=== PATIENT | male | born 1940 | race African-American/Black ===

== ENCOUNTER 2020-01-22 14:15 | Emergency (ER) | payer OTHER ==
[2020-01-22 14:37] LABS: Absolute Lymphocytes (CBC) 2.6 K/uL (0.7-4.9); Basophils % 0.7 % (0-1.3); Hematocrit 39.3 % (39.6-49.0); Lymphocytes % 21.9 % (15.3-44.8); MPV 9.4 fL (7.6-11.3); RBC Red Blood Cell Count 5.15 M/uL (4.33-5.43)
[2020-01-22] MEDS ORDERED: MORPHINE 4 MG/ML SYR ONE (14:43)
[2020-01-22] MEDS ORDERED: ONDANSETRON 4 MG/2 ML VIAL ONE (14:43)
[2020-01-22 15:05] LABS: Albumin 3.8 g/dL (3.4-5.0); Bilirubin Direct 0.2 mg/dL (0-0.2); Bilirubin Total 0.6 mg/dL (0.2-1.0); Potassium 3.6 mmol/L (3.5-5.1); Protein, Total 8.5 g/dL (6.4-8.2)
--- NOTE | 2020-01-22 15:48 | RAD REPORT ---
EXAM DESCRIPTION: CT - Abdomen Pelvis Wo Contrast - 01/22/2020 3:32 pm CLINICAL HISTORY: ABD PAIN COMPARISON: No comparisons TECHNIQUE: Axial [address] imaging of the abdomen and pelvis was performed without IV contrast. No IV contrast was given because of allergy, abnormal renal function, patient refusal or physician re quest. Oral contrast was given. All CT scans are performed using dose optimization technique as appropriate and may include automated exposure control or mA/KV adjustment according to patient size. FINDINGS: No suspicious findings in the lung bases. The liver, spleen and pancreas show no suspicious findings on non-contrast imaging. Gallbladder and b iliary tree are also without suspicious finding. Mild hydronephrosis and hydroureter present secondary to a 5 mm distal ureteral stone. This is approx imately 2 cm from the UVJ. On a KUB projection the stone is superimposed on the lower right sacrum an d may be obscured. No left-sided hydronephrosis. No other obstructing or nonobstructing renal calculi . No significant adrenal finding. Isodense renal masses and pyelonephritis cannot be excluded in the absence of IV contrast. The urinary bladder is without significant finding. Prominent lobulated pros pedroza gland projects into the bladder base. Calcifications are seen posteriorly on the right. No dilated bowel loops or bowel wall thickening. Diverticulosis is present without diverticulitis. No appendicitis findings. No free air, free fluid or inflammatory stranding. No hernia, mass or bulky l ymphadenopathy. No suspicious bony findings. IMPRESSION: Mild hydronephrosis secondary to an obstructing 5 mm calculus distal right ureter approx imately 2 cm from the UVJ. On a KUB projection the stone is superimposed on the lower right sacrum and may be radiographically o ccult. Enlarged lobulated prostate gland projecting into the bladder base. Correlation can be made with PSA values. Full assessment is limited is the absence of IV contrast.
[2020-01-22] MEDS ORDERED: KETOROLAC 30 MG/ML INJ ONE (16:10)
[2020-01-22] MEDS ORDERED: TAMSULOSIN 0.4 MG SR CAP ONE (16:10)
[2020-01-22] MEDS ORDERED: NA CHLORIDE 0.9% 500 ML ONE (16:11)
--- NOTE | 2020-01-22 16:45 | ER ---
Nurse's Notes [facility] Name: Jesus Lima Age: 79 yrs Sex: Male : 1940 Arrival Date: 01/22/2020 Time: 14:17 Bed 6 Private MD: Diagnosis: Hydronephrosis with renal and ureteral calculous obstruction Presentation: 01/21 14:20 Chief complaint: EMS states: right sided flank pain that started 1.5 hours ago, reports em nausea and vomiting, denies fever. Coronavirus screen: Proceed with normal triage. Ebola Screen: Patient negative for fever greater than or equal to 101.5 degrees Fahrenheit, and additional compatible Ebola Virus Disease symptoms Patient denies exposure to infectious person. Patient denies travel to an Ebola-affected area in the 21 days before illness onset. No symptoms or risks identified at this time. Initial Sepsis Screen: Does the patient meet any 2 criteria? No. Patient's initial sepsis screen is negative. Does the patient have a suspected source of infection? No. Patient's initial sepsis screen is negative. Risk Assessment: Do you want to hurt yourself or someone else? Patient reports no desire to harm self or others. Onset of symptoms was January 22, 2020. 14:20 Method Of Arrival: EMS: [facility] em 14:20 Acuity: DANI 3 em Historical: - Allergies: 14:18 No Known Allergies; ph - PMHx: 14:18 Diabetes - IDDM; Hypertension; ph - PSHx: 14:18 shoulder surgery- L; penile sx; ph - Immunization history:: Adult Immunizations unknown. - Social history:: Smoking status: Patient denies any tobacco usage or history of. Screenin:20 Abuse screen: Denies threats or abuse. Nutritional screening: No deficits noted. em Tuberculosis screening: No symptoms or risk factors identified. Fall Risk None identified. Assessment: 14:20 General: Appears in no apparent distress. uncomfortable, Behavior is calm, cooperative, em appropriate for age, Denies fever. Pain: Complains of pain in posterior aspect of right lateral abdomen Pain currently is 5 out of 10 on a pain scale. at worst was 10 out of 10 on a pain scale. Pain began 1 hour ago. Neuro: Level of Consciousness is awake, alert, obeys commands, Oriented to person, place, time, situation, Appropriate for age. Cardiovascular: Capillary refill < 3 seconds Patient's skin is warm and dry. Respiratory: Airway is patent Respiratory effort is even, unlabored, Respiratory pattern is regular, symmetrical. GI: Abdomen is round obese, Reports nausea, vomiting, Patient currently denies diarrhea. Derm: Skin is intact, is healthy with good turgor, Skin is pink, warm \T\ dry. Musculoskeletal: Capillary refill < 3 seconds, Range of motion: intact in all extremities. 15:30 Reassessment: Patient appears in no apparent distress at this time. states pain em medication has not helped, pt appears more comfortable than before, provider notified, wheeled to CT via stretcher Patient states symptoms have not improved. 16:39 Reassessment: Patient appears in no apparent distress at this time. Patient and/or em family updated on plan of care and expected duration. Pain level reassessed. Patient is alert, oriented x 3, equal unlabored respirations, skin warm/dry/pink. rates pain 1/10 Patient states feeling better. Patient states symptoms have improved. Vital Signs: 14:20 BP 176 / 70; Pulse 78; Resp 18; Temp 98.4; Pulse Ox 97% on R/A; Pain 10/10; em 15:00 BP 170 / 81; Pulse 78; Resp 18; Pulse Ox 95% on R/A; em 16:00 BP 176 / 80; Pulse 77; Resp 18; Pulse Ox 99% on R/A; Pain 7/10; em ED Course: 14:17 Patient arrived in ED. ph 14:17 Pancho Isbell PA is PSYCHIATRICP. jr8 14:17 Austin Orosco MD is Attending Physician. jr8 14:20 Arm band placed on. em 14:20 Patient has correct armband on for positive identification. Bed in low position. Call em light in reach. Pulse ox on. NIBP on. 14:24 Initial lab(s) drawn, by me, sent to lab. Inserted saline lock: 22 gauge in left kj1 antecubital area, using aseptic technique. Blood collected. 14:27 Dakota London, RN is Primary Nurse. em 14:31 Triage completed. em 15:31 CT Abd/Pelvis - Without Contrast In Process Unspecified. EDMS 15:33 CT completed. Patient tolerated procedure well. Patient moved back from CT. mw3 16:43 Nima George MD is Referral Physician. jr8 16:58 No provider procedures requiring assistance completed. IV discontinued, intact, em bleeding controlled, No redness/swelling at site. Pressure dressing applied. Administered Medications: 14:39 Drug: Zofran (Ondansetron) 4 mg Route: IVP; Site: left antecubital; em 15:10 Follow up: Response: No adverse reaction; Marked relief of symptoms; Nausea is decreasedem 14:41 Drug: morphine 4 mg Route: IVP; Site: left antecubital; em 15:10 Follow up: Response: No adverse reaction; Pain is unchanged, physician notified; RASS: em Alert and Calm (0) 16:11 Drug: Flomax 0.4 mg Route: PO; em 16:36 Follow up: Response: No adverse reaction em 16:12 Drug: TORadol - Ketorolac 10 mg Route: IVP; Site: left antecubital; em 16:36 Follow up: Response: No adverse reaction; Marked relief of symptoms; Pain is decreased em 16:12 Drug: NS 0.9% 500 ml Route: IV; Rate: bolus; Site: left antecubital; em 16:45 Follow up: IV Status: Completed infusion; IV Intake: 500ml em Intake: 16:45 IV: 500ml; Total: 500ml. em Outcome: 16:44 Discharge ordered by MD. jr8 17:16 Discharged to home via wheelchair. em 17:16 Condition: good 17:16 Discharge instructions given to patient, Instructed on discharge instructions, follow up and referral plans. medication usage, Demonstrated understanding of instructions, follow-up care, medications, Prescriptions given X 4. 17:19 Patient left the ED. em Signatures: Dispatcher [employer] EDDakota Helton RN RN em Pancho Isbell PA PA jr8 Anisha Mg RN RN Chante Ford mw3 Kelsey Hitchcock kj1 Corrections: (The following items were deleted from the chart) 16:39 14:20 BP 176 / 70; Pulse 78bpm; Resp 18bpm; Pulse Ox 97% RA; Pain 10/10; em em
--- NOTE | 2020-01-22 16:45 | EDPHYS ---
Physician Documentation [facility] Name: Jesus Lima Age: 79 yrs Sex: Male : 1940 Arrival Date: 01/22/2020 Time: 14:17 Bed 6 Private MD: ED Physician Austin Orosco HPI: 01/21 15:09 This 79 yrs old Black Male presents to ER via EMS with complaints of Flank pain. jr8 15:10 The patient complains of pain in the right flank and abdomen. The pain does not jr8 radiate. Onset: The symptoms/episode began/occurred acutely, today. Modifying factors: The symptoms are alleviated by nothing. the symptoms are aggravated by nothing. Associated signs and symptoms: Pertinent positives: vomiting. Severity of pain: At its worst the pain was moderate in the emergency department the pain is unchanged. The patient has not experienced similar symptoms in the past. The patient has not recently seen a physician. Historical: - Allergies: 14:18 No Known Allergies; ph - PMHx: 14:18 Diabetes - IDDM; Hypertension; ph - PSHx: 14:18 shoulder surgery- L; penile sx; ph - Immunization history:: Adult Immunizations unknown. - Social history:: Smoking status: Patient denies any tobacco usage or history of. ROS: 15:10 Eyes: Negative for injury, pain, redness, and discharge, ENT: Negative for injury, jr8 pain, and discharge, Neck: Negative for injury, pain, and swelling, Cardiovascular: Negative for chest pain, palpitations, and edema, Respiratory: Negative for shortness of breath, cough, wheezing, and pleuritic chest pain, MS/Extremity: Negative for injury and deformity, Skin: Negative for injury, rash, and discoloration, Neuro: Negative for headache, weakness, numbness, tingling, and seizure. 15:10 Abdomen/GI: Positive for abdominal pain, nausea and vomiting, Negative for diarrhea. 15:10 Back: Positive for flank pain, on the right. Exam: 15:10 Eyes: Pupils equal round and reactive to light, extra-ocular motions intact. Lids and jr8 lashes normal. Conjunctiva and sclera are non-icteric and not injected. Cornea within normal limits. Periorbital areas with no swelling, redness, or edema. ENT: Nares patent. No nasal discharge, no septal abnormalities noted. Tympanic membranes are normal and external auditory canals are clear. Oropharynx with no redness, swelling, or masses, exudates, or evidence of obstruction, uvula midline. Mucous membranes moist. Neck: Trachea midline, no thyromegaly or masses palpated, and no cervical lymphadenopathy. Supple, full range of motion without nuchal rigidity, or vertebral point tenderness. No Meningismus. Cardiovascular: Regular rate and rhythm with a normal S1 and S2. No gallops, murmurs, or rubs. Normal PMI, no JVD. No pulse deficits. Respiratory: Lungs have equal breath sounds bilaterally, clear to auscultation and percussion. No rales, rhonchi or wheezes noted. No increased work of breathing, no retractions or nasal flaring. Back: No spinal tenderness. No costovertebral tenderness. Full range of motion. Skin: Warm, dry with normal turgor. Normal color with no rashes, no lesions, and no evidence of cellulitis. 15:10 Abdomen/GI: Inspection: obese Bowel sounds: active, all quadrants, Palpation: soft, in all quadrants, moderate abdominal tenderness, in the anterior aspect of right lateral abdomen, right upper quadrant and right lower quadrant, mass, is not appreciated, rebound tenderness, is not appreciated, voluntary guarding, is not appreciated, involuntary guarding, is not appreciated, no appreciated organomegaly, Indicators: McBurney's point is not tender, Light's sign is negative, Rovsing's sign is negative, Liver: tenderness, is not appreciated. Vital Signs: 14:20 BP 176 / 70; Pulse 78; Resp 18; Temp 98.4; Pulse Ox 97% on R/A; Pain 10/10; em 15:00 BP 170 / 81; Pulse 78; Resp 18; Pulse Ox 95% on R/A; em 16:00 BP 176 / 80; Pulse 77; Resp 18; Pulse Ox 99% on R/A; Pain 7/10; em MDM: 14:17 Patient medically screened. jr8 16:42 Data reviewed: vital signs, nurses notes, lab test result(s), radiologic studies, CT jr8 scan. Data interpreted: Pulse oximetry: on room air is 97 %. Interpretation: normal. Counseling: I had a detailed discussion with the patient and/or guardian regarding: the historical points, exam findings, and any diagnostic results supporting the discharge/admit diagnosis, lab results, radiology results, the need for outpatient follow up, a urologist, to return to the emergency department if symptoms worsen or persist or if there are any questions or concerns that arise at home. Response to treatment: the patient's symptoms have markedly improved after treatment. ED course: Patients pain markedly improved. Able to urinate. Will send home to f/u with urology. Counseled patient on s/s to watch for that would indicate need for him to come back. Will refer to urology. Patient good with this plan . 01/21 14:24 Order name: Basic Metabolic Panel; Complete Time: 15: [facility] 01/21 14:24 Order name: CBC with Diff; Complete Time: 15: [facility] 01/21 14:24 Order name: Creatinine for Radiology; Complete Time: 15: [facility] 01/21 14:24 Order name: Hepatic Function; Complete Time: 15: [facility] 01/21 14:24 Order name: Lipase; Complete Time: 15: [facility] 01/21 15:09 Order name: CT Abd/Pelvis - Without Contrast; Complete Time: 15:53 01/21 14:24 Order name: IV Saline Lock; Complete Time: 14:26 [facility] 01/21 14:24 Order name: Labs collected and sent; Complete Time: 14: [facility] 01/21 14:24 Order name: Urine Dipstick-Ancillary (obtain specimen); Complete Time: 16:49 jr Administered Medications: 14:39 Drug: Zofran (Ondansetron) 4 mg Route: IVP; Site: left antecubital; em 15:10 Follow up: Response: No adverse reaction; Marked relief of symptoms; Nausea is decreasedem 14:41 Drug: morphine 4 mg Route: IVP; Site: left antecubital; em 15:10 Follow up: Response: No adverse reaction; Pain is unchanged, physician notified; RASS: em Alert and Calm (0) 16:11 Drug: Flomax 0.4 mg Route: PO; em 16:36 Follow up: Response: No adverse reaction em 16:12 Drug: TORadol - Ketorolac 10 mg Route: IVP; Site: left antecubital; em 16:36 Follow up: Response: No adverse reaction; Marked relief of symptoms; Pain is decreased em 16:12 Drug: NS 0.9% 500 ml Route: IV; Rate: bolus; Site: left antecubital; em 16:45 Follow up: IV Status: Completed infusion; IV Intake: 500ml em Disposition: 01/22 10:04 Co-signature as Attending Physician, Austin Orosco MD I agree with the assessment and joelle plan of care. Disposition: 01/22/20 16:44 Discharged to Home. Impression: Hydronephrosis with renal and ureteral calculous obstruction. - Condition is Stable. - Discharge Instructions: Kidney Stones, Hydronephrosis. - Prescriptions for Augmentin 875- 125 mg Oral Tablet - take 1 tablet by ORAL route every 12 hours for 10 days; 20 tablet. Tylenol- Codeine #3 300-30 mg Oral Tablet - take 2 tablets by ORAL route every 6 hours As needed; 20 tablet. Flomax 0.4 mg Oral Capsule, Sust. Release 24 hr - take 1 capsule by ORAL route once daily 1/2 hour following the same meal each day; 30 capsule. Zofran 4 mg Oral Tablet - take 1 tablet by ORAL route every 8 hours As needed; 20 tablet. - Medication Reconciliation Form, Thank You Letter, Antibiotic Education, Prescription Opioid Use form. - Follow up: Nima George MD; When: 5 - 6 days; Reason: Recheck today's complaints, Continuance of care, Re-evaluation by your physician. - Problem is new. - Symptoms have improved. Signatures: Dispatcher [employer] Austin Yip MD MD cha Munoz, Edgar, RN RN Pancho Isbell PA PA jr8 Anisha Mg RN RN ph Corrections: (The following items were deleted from the chart) 01/21 17:19 16:44 01/22/2020 16:44 Discharged to Home. Impression: Hydronephrosis with renal and em ureteral calculous obstruction. Condition is Stable. Forms are Medication Reconciliation Form, Thank You Letter, Antibiotic Education, Prescription Opioid Use. Follow up: Nima George; When: 5 - 6 days; Reason: Recheck today's complaints, Continuance of care, Re-evaluation by your physician. Problem is new. Symptoms have improved. jrJazmín
[2020-01-22 17:28] VITALS: TEMP 98.4
[2020-01-22 17:31] VITALS: BP 176/80; O2SAT 99
== END 2020-01-22 17:19 | disposition home or self-care (01) ==
LOC: ER 14:15
DX: N13.2 Hydronephrosis with renal and ureteral calculous obstruction (principal); I10 Essential (primary) hypertension
CPT/HCPCS: 96361; 85025; 80048; 36415; 80076; 83690; 74176; 96375; 96374; 99284; J7040; J2405

== ENCOUNTER 2024-03-01 10:01 | Emergency (ER) | payer OTHER ==
--- OUTSIDE RECORDS SUMMARY | 2024-03-01 10:03 | XMS REPORT | Continuity of Care Document ---
Author Name Unknown Address [address] [place] [address] [facility] Address [address] [place] [address] Care Team Providers Care Brim Buster Name Role Phone Pcp, Patient Does Not Have A Primary Care Physic kelly Sherlyn Marcus Attending Clinician Unavailable Aj SANTAMARIA, Nikole Barros Attending Clinician Unavailab le Provider, [facility] Attending Clinician Unavailable Only, Ang Db Test Attending Clinician UnavailYenny Yepez MD Attending Clinician YENNY BAKER Attending Clinician Unavailable Doctor Unassigned, [place] Attending Clinician U REY Gerber Attending Clinician Unavailable Faviola-Mbayo_A_AH Attending Clinician Unavailable Faviola-Mbayo_A_AH Admitting Clinician Unavailable Payers Payer Name Policy Type Policy Number Effective Date Expirati on Date Source [facility]/ADVANT AGE - HMO) [id number] 2019 00:00:00 Allergies, Adverse Reactions, Alerts Allergy Name Allergy Type Status Severity Reaction(s) Onset Date Inactive Date Treating Clinician Comments Source NO KNOWN ALLERGIE S Drug Class Active [facility] Social History Social Habit Start Date Stop Date Quantity Comments Source Exposure to SARS-CoV-2 (event) Not sure [facility] Sex Assigned At 1940 00:00:00 1940 00:00:00 [facility] Smoking Status Start Date Stop Date Source Unknown if ever smoked Unive [facility] Procedures Procedure Date / Time Performed Performing Clinicia n Source ASSIGNMENT OF BENEFITS 2021-10-21 19:54:12 Docto r Unassigned, [place] [facility] Encounters Start Date/Time End Date/Time Encounter Type Admission Type Attending Clinicians Care Facility Care Department Encounter ID Source 2021-10-23 11:25:43 Outpatient Sherlyn Marcus [facility] [id number] [facility] 2021-10-23 11:25:26 Outpatient Sherlyn Marcus [facility] [id number] [facility] 2021-10-22 00:00:00 2021-10-22 00:00:00 Letter (Out) Nikole Rocha [facility] 1..114 [id number] [facility] 2021-10-22 00:00:00 2021-10-22 00:00:00 Telephone Provider, [facility] [id number] [facility] 2021-10-21 14:00:00 2021-10-21 14:15:00 Laboratory Only Only, Terell Bang Test Tushar [facility] [id number] [facility] 2021-10-21 14:00:00 2021-10-21 14:00:00 Outpatient R YENNY BAKER [facility] [id number] [facility] 2021-10-21 00:00:00 2021-10-21 00:00:00 Orders Only Doctor Unassigned, [place] [facility] [id number] [facility] 2020-11-25 13:15:00 2020-11-25 13:15:00 Outpatient REY CUEVAS [facility] [id number] [facility] 2019-11-16 07:18:00 2019-11-16 07:18:00 Outpatient Faviola-Eugenioo _A_AH VFP VFP [id number] [facility] e
[2024-03-01] MEDS ORDERED: ACETAMINOPHEN 500 MG TAB ONE (10:51)
[2024-03-01] MEDS ORDERED: KETOROLAC 30 MG/ML INJ ONE (10:52)
[2024-03-01] MEDS ORDERED: methocarbamoL 500 MG TAB ONE (10:52)
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
[2024-03-01 13:06] VITALS: BP 170/85; TEMP 98; O2SAT 100
== END 2024-03-01 12:59 | disposition home or self-care (01) ==
LOC: ER 10:01
DX: S10.83XA Contusion of other specified part of neck, initial encounter (principal); S43.402A Unspecified sprain of left shoulder joint, initial encounter; M54.89 Other dorsalgia
CPT/HCPCS: 71045; 72040; 73010; 96372; 99284